=== PATIENT | female | born 1945 | race Caucasian/White ===

== ENCOUNTER → 2016-12-20 | Outpatient (CLI) | payer MEDICARE, BC ==
[2014-09-15 15:00] VITALS: BP 130/75
[~2016-12-20] MED LIST: AMLO1CAP12 PO; ASPI325T4 PO; CA C1TAB63 PO; CHOL500015 PO; ESTR0.5T PO; FLUO40CA2 PO; HYDR-965 PO; HYDR25TA9 PO; IOHEXOL 180 MG/ML 10 ML VIAL. ONE; MULT-245 PO; NAPR500T3 PO; POTA10CA PO; SIMV20TA3 PO; TRAM50TA PO; methylPREDNISolone ACETATE 40 MG/ML VIAL. ONE; methylPREDNISolone ACETATE 80 MG/ML VIAL. ONE
--- NOTE | 2016-12-21 00:20 | PN ---
DATE: 12/20/2016 PROGRESS NOTE FOR PAIN CLINIC DIAGNOSES: 1. Lumbar radiculopathy with lumbar degenerative disk disease and lumbar spinal stenosis. 2. Cervical radiculopathy with cervical degenerative disk disease. HISTORY OF PRESENT ILLNESS: The patient is a 71-year-old female who returns for followup status post lumbar epidural steroid injections. The patient reports that she did very well with these with approximately 50% improvement pain, returning now in the base of the neck and into her left shoulder and arm, which has been much more painful than over the last few months. The patient reports it radiates in to the left arm and shoulder. It is going into the hand occasionally. The patient reports that it is causing some increased pain with rotational motion of the left shoulder as well as with using the upper extremities for daily activities such as getting dressed or using any items above her shoulders or arms such as cleaning or reaching and also some pain with neck extension and somewhat left lateral rotation she has noticed when she has been driving. The patient reports otherwise doing fairly well, still some pain in the low back and lower extremities, but this is secondary to the pain in the neck and left shoulder. The patient reports no loss of motor function. The patient rates her pain as a 6 on a scale of 10, currently a 2 on a scale of 10, it can be as high as a 9 with activity in the left arm and shoulder. The patient did MRI scan of her cervical spine which were reviewed with her showing some significant stenosis and left-sided compromise at the C5-C6 level. PHYSICAL EXAMINATION: VITAL SIGNS: The patient's blood pressure is 136/82, pulse 73, respirations are 18, temperature 97.7 degrees Fahrenheit, weight is 243 pounds, height is 5 feet 4-1/2 inches. GENERAL: The patient is awake, alert, oriented, appropriate, has a very pleasant demeanor. HEENT: Head shows normocephalic, atraumatic. Extraocular movements are intact and symmetrical. Oral cavity shows moist mucous membranes moist and pink. Dentition is intact. NECK: Shows anterior throat supple without palpable lymphadenopathy noted. Swallow reflex is symmetrical. Posterior cervical musculature shows some moderate tenderness with palpation, only diffusely in the inferior aspect of the cervical paraspinous muscles without radiation, appears symmetrical in the trapezius with rotational motion, shows good rotational motion, good extension and flexion. Minor tenderness with pain reported at the base of the neck with forward left lateral rotation past 45 degrees, but not with rotation or forward flexion. CHEST: Shows normal on inspection. Breath sounds are clear to auscultation bilaterally. HEART: Shows S1, S2 clear. ABDOMEN: Obese, soft, nontender, nondistended. No palpable organomegaly is noted. No rebound or guarding demonstrated. EXTREMITIES: The patient's upper extremities show deep tendon reflexes 2+ in the biceps and triceps tendons. Motor exam is strong with hooker on strength rated at 5/5 as is biceps and triceps flexion. The patient's lower extremities showed deep tendon reflexes at 1+ in the patellar and tendo calcaneus tendons. Motor exam is 5/5 on the left and approximately 4/5 on the right with dorsiflexion and extension. Options were discussed with the patient. We will proceed with a cervical epidural steroid injection today with fluoroscopic guidance. Risks were again discussed including, but not limited to bleeding, infection, possibility of epidural hematoma, subsequent neurologic compromise, dural puncture, headaches, spinal cord and/or nerve damage, side effects of steroid medication and poor results regarding pain control. The patient understands and wishes to proceed. The patient will return to clinic in approximately 2 weeks for followup, was counseled on return appointment, activity level and side effects to be aware of. DIAGNOSIS: Cervical radiculopathy with cervical degenerative disk disease. PROCEDURE: Cervical epidural steroid injection in translaminar approach at C6-C7 level using C-arm fluoroscopic guidance under sterile prep and drape using local anesthetic. Medications injected is 120 mg Depo-Medrol plus 5 mL of preservative-free normal saline and 2 mL of Isovue for contrast. CONDITION AT DISCHARGE: Stable. The patient tolerated procedure well, had no complications. DUNIA HAN MD DR: SUZI/anika JOB#: [id number] / [id number]
== END | disposition home or self-care (01) ==
LOC: PNCL 08:10
PROVIDERS: ATTEND Anesthesiology
DX: M50.123 Cervical disc disorder at C6-C7 level with radiculopathy (principal)
CPT/HCPCS: 62321; J1030; J1040

== ENCOUNTER → 2017-01-03 | Outpatient (CLI) | payer MEDICARE, BC ==
[2014-09-15 15:00] VITALS: BP 130/75
[~2017-01-03] MED LIST changes: -POTA10CA PO; +POTASSIUM CHLO10 MEQ PO
--- NOTE | 2017-01-03 21:15 | PAIN ---
DATE OF SERVICE: 01/03/2017 PROGRESS NOTE FOR PAIN CLINIC DIAGNOSES: 1. Lumbar radiculopathy with lumbar degenerative disk disease, lumbar spinal stenosis. 2. Cervical radiculopathy with cervical degenerative disk disease. HISTORY OF PRESENT ILLNESS: The patient is a 71-year-old female, who returns for followup status post cervical epidural steroid injection x 1. The patient reports about 50% improvement in her neck, but her chief complaint today is her low back pain and bilateral lower extremity pain, it is becoming more noticeable her neck is feeling much better. The patient's pain is 7 on a scale of 10 is worse as well in her low back, worse with doing some activity at home, she has been doing some gardening and stooping and bending, which has been increasing the pain in her low back, her neck is doing much better. The patient is quite pleased with this. The low back; however is almost constant pain, burning and aching, worse when active. It is 3 on a scale 10 currently, it can be as high as 7. The patient reports it wakes her from sleep occasionally, but not very often, but it is becoming more and more nagging, radiating into the posterior gluteus, posterior thighs bilaterally. The patient reports no new motor or sensory deficits, no new bowel or bladder incontinence, but still significant pain is noted. PHYSICAL EXAMINATION: VITAL SIGNS: The patient's blood pressure 141/77, pulse 66, respirations 18, temperature is 97.8 degrees Fahrenheit. Weight is 237 pounds. GENERAL: The patient is awake, alert, oriented, appropriate, very pleasant demeanor. HEENT: Shows normocephalic, atraumatic. Extraocular movements are intact and symmetrical. Oral cavity shows mucous membranes are moist and pink. Dentition is intact. NECK: Shows anterior throat supple without palpable lymphadenopathy noted. Swallow reflex is symmetrical. CHEST: Shows normal on inspection. Breath sounds clear to auscultation bilaterally. HEART: Shows S1 and S2 clear. ABDOMEN: Obese, soft, nontender, nondistended. No palpable organomegaly. No rebound or guarding demonstrated. BACK: Shows spine grossly midline. Cervical paraspinous muscle shows only some very mild tenderness with palpation inferior aspect of the cervical paraspinous muscles as well as the superior medial trapezius, but good rotation. Full right and left as well as extension and full forward flexion without difficulty or pain reported. The patient's low back shows normal appearing lumbar lordotic curvature and symmetrical on inspection of the paraspinous musculature with palpation shows some moderate tenderness to palpation in the lower lumbar distribution, but only diffusely without radiation. The patient has good rotational motion of lumbar spine, both laterally greater than 10 degrees right and left as well as extension greater than 10 degrees, forward flexion 45 degrees without significant pain reported. EXTREMITIES: Lower extremities show deep tendon reflexes at 1+ in the patellar and tendo calcaneus tendons. Motor exam is approximately 4/5 bilaterally with dorsiflexion, extension, quadriceps and hamstring flexion, but is symmetrical. Options were discussed with the patient and the patient's old chart was reviewed as her current medication regimen updated. Current review of systems updated today as well. We will proceed with a lumbar epidural steroid injection today with fluoroscopic guidance. Risks were then discussed including, but not limited to bleeding, infection, possibility of epidural hematoma, subsequent neurologic compromise, dural puncture, headaches, spinal cord and/or nerve damage, side effects of steroid medication and poor results regarding pain control. The patient understands and wishes to proceed. The patient will return to clinic in approximately 2 weeks for followup, was counseled on return appointment, activity level and side effects to be aware of. DIAGNOSES: Lumbar radiculopathy with lumbar degenerative disk disease, lumbar spinal stenosis. PROCEDURE: Lumbar epidural steroid injection in translaminar approach at L5-S1 level using C-arm fluoroscopic guidance under sterile prep and drape using local anesthetic. MEDICATIONS INJECTED: Depo-Medrol 120 mg plus 10 of preservative-free normal saline and 2 mL of Isovue for contrast. CONDITION AT DISCHARGE: Stable. The patient tolerated procedure well, had no complications. DUNIA HAN MD DR: SUZI/anika JOB#: [id number] / [id number]
== END | disposition home or self-care (01) ==
LOC: PNCL 07:52
PROVIDERS: ATTEND Anesthesiology
DX: M51.16 Intervertebral disc disorders with radiculopathy, lumbar region (principal); M48.06 Spinal stenosis, lumbar region; M50.10 Cervical disc disorder with radiculopathy, unspecified cervical region
CPT/HCPCS: 62323; J1030; J1040

== ENCOUNTER → 2017-02-27 | Outpatient (CLI) | payer MEDICARE, BC ==
[2014-09-15 15:00] VITALS: BP 130/75
[~2017-02-27] MED LIST changes: -ASPI325T4 PO; +ASPI325T8 PO; -CHOL500015 PO; +CHOL500045 PO; -IOHEXOL 180 MG/ML 10 ML VIAL. ONE; -methylPREDNISolone ACETATE 40 MG/ML VIAL. ONE; -methylPREDNISolone ACETATE 80 MG/ML VIAL. ONE
== END | disposition home or self-care (01) ==
LOC: PNCL 08:30
PROVIDERS: ATTEND Anesthesiology
DX: M48.06 Spinal stenosis, lumbar region (principal); M51.16 Intervertebral disc disorders with radiculopathy, lumbar region; M50.10 Cervical disc disorder with radiculopathy, unspecified cervical region
CPT/HCPCS: G0463